=== PATIENT | male | born 1995 | race Caucasian/White ===

== ENCOUNTER 2018-03-06 14:45 | Emergency (ER) | payer OTHER ==
--- NOTE | 2018-03-06 15:42 | EDM.PDOC ---
ED HPI GENERAL MEDICAL PROBLEM - General Chief Complaint: Upper Extremity Injury/Pain Stated Complaint: LEFT PINKY FINGER Time Seen by Provider: 03/06/18 15:20 Source of Information: Reports: Patient History Limitations: Reports: No Limitations - History of Present Illness INITIAL COMMENTS - FREE TEXT/NARRATIVE: HISTORY AND PHYSICAL: History of present illness: [Comes to the ER complaining of left fifth finger laceration pain and bleeding. Was holding a shelf in place while his friend was hammering. The hammer moved, slamming into patients fifth left finger. He complains of pain, deformity, bleeding. Last tetanus was approximately 7 years ago.] Review of systems: As per history of present illness and below otherwise all systems reviewed and negative. Past medical history: As per history of present illness and as reviewed below otherwise noncontributory. Surgical history: As per history of present illness and as reviewed below otherwise noncontributory. Social history: No reported history of drug or alcohol abuse. Family history: As per history of present illness and as reviewed below otherwise noncontributory. Physical exam: HEENT: Atraumatic, normocephalic. Extremities: L pinky finger shows stellate patterned, avulsion injury to tip of finger. Tissue protruding from wound of tip of finger laceration. Second laceration is linear across the middle of the fingernail. Neurovascular unremarkable. Neuro: Awake, alert, oriented. Motor and sensory unremarkable throughout. Exam nonfocal. Diagnostics: [Left Fifth finger x-ray] Therapeutics: [Adacel IM] Impression: [L 5th finger laceration] Plan: [Rx written for Augmentin 875 mg #20 sig one by mouth twice a day total taken 0 refills referral given to local plastic surgery/hand specialist. See procedure note for wound closure details. ] Definitive disposition and diagnosis as appropriate pending reevaluation and review of above. left fifth digit Pain Score (Numeric/FACES): 8 - Related Data Allergies Allergy/AdvReac Type Severity Reaction Status Date / Time No Known Allergies Allergy Verified 03/06/18 15:15 Home Meds: Home Meds . [No Known Home Meds] 03/06/18 [History] Past Medical History - Past Health History Medical/Surgical History: Denies Medical/Surgical History - Infectious Disease History Infectious Disease History: Reports: None Social & Family History - Family History Family Medical History: Noncontributory - Tobacco Use Smoking Status *Q: Former Smoker Used Tobacco, but Quit: Yes Month/Year Tobacco Last Used: 2018 - Caffeine Use Caffeine Use: Reports: None - Recreational Drug Use Recreational Drug Use: No Review of Systems - Review of Systems Review Of Systems: ROS reveals no pertinent complaints other than HPI. ED EXAM, GENERAL - Physical Exam Exam: See Below ED TRAUMA EXTREMITY PROCEDURES - Laceration/Wound Repair Left Distal Finger Lac/Wound Length In cm: 1.5 Appearance: Subcutaneous, Stellate, Moderately Contaminated Distal NVT: Neuro & Vascular Intact Anesthetic Type: Digital Local Anesthesia - Lidocaine (Xylocaine): 1% Plain Local Anesthesia - Bupivicaine (Marcaine): 0.5% Plain Local Anesthetic Volume: 5cc Skin Prep: Chlorhexidine (Hibiciens), Isopropyl Alcohol (Alcohol), Saline, Sterile Drape Exploration/Debridement/Repair: Wound Explored, In a Bloodless Field, Moderate Debridement Closed With: Sutures Suture Size: 4-0 # of Sutures: 4 Suture Type: Nylon Sterile Dressing Applied: Nurse Tetanus Status Addressed: Yes Complications: No Progress/Comments: 3 sutures are placed in sterile fashion to the tip of the left fifth finger. One suture is through the fingernail attaching the proximal end to the distal aspect of the fingernail. Course - Vital Signs Last Recorded V/S: Last Vital Signs Temp 98.8 F 03/06/18 15:15 Pulse 76 03/06/18 15:15 Resp 18 03/06/18 15:15 BP 125/71 03/06/18 15:15 Pulse Ox 98 03/06/18 15:15 - Orders/Labs/Meds Orders: Active Orders 24 hr Category Date Time Status Vaccines to be Administered [RC] PER UNIT ROUTINE Care 03/06/18 17:24 Active Meds: Medications Discontinued Medications Generic Name Dose Route Start Last Admin Trade Name Freq PRN Reason Stop Dose Admin Bupivacaine HCl 10 ml 03/06/18 16:23 03/06/18 16:36 Sensorcaine-Mpf 0.5% INJECT 03/06/18 16:24 10 ml ONETIME ONE Administration Diphtheria/Tetanus/Acell Pertussis 0.5 ml 03/06/18 17:24 03/06/18 17:39 Adacel IM 03/06/18 17:25 0.5 ml .ONCE ONE Administration Lidocaine 5 ml 03/06/18 16:23 03/06/18 16:36 Xylocaine-Mpf 2% INJECT 03/06/18 16:24 Not Given ONETIME ONE Lidocaine HCl 50 ml 03/06/18 16:30 03/06/18 16:36 Xylocaine 1% INJECT 50 ml ASDIRECTED ZACHARY Administration Neomycin/Polymyxin/Bacitracin 1 gm 03/06/18 17:25 Triple Antibiotic Oint TOP 03/06/18 17:26 ONETIME ONE Departure - Departure Time of Disposition: 17:30 Disposition: Home, Self-Care 01 Condition: Good Clinical Impression: Laceration of finger of left hand, Open fracture of tuft of distal phalanx of finger - Discharge Information Instructions: Metacarpal Fracture, [id number] Referrals: PCP,None [Primary Care Provider] - Forms: ED Department Discharge Additional Instructions: The following information is given to patients seen in the emergency department who are being discharged to home. This information is to outline your options for follow-up care. We provide all patients seen in our emergency department with a follow-up referral. The need for follow-up, as well as the timing and circumstances, are variable depending upon the specifics of your emergency department visit. If you don't have a primary care physician on staff, we will provide you with a referral. We always advise you to contact your personal physician following an emergency department visit to inform them of the circumstance of the visit and for follow-up with them and/or the need for any referrals to a consulting specialist. The emergency department will also refer you to a specialist when appropriate. This referral assures that you have the opportunity for follow-up care with a specialist. All of these measure are taken in an effort to provide you with optimal care, which includes your follow-up. Under all circumstances we always encourage you to contact your private physician who remains a resource for coordinating your care. When calling for follow-up care, please make the office aware that this follow-up is from your recent emergency room visit. If for any reason you are refused follow-up, please contact the [facility] emergency department at and asked to speak to the emergency department charge nurse. [facility] Specialty care- [facility] [address] [place] [address], [address] [place] [address] Follow-up at the clinic listed above. If you don't hear from them in the next several days call there to get scheduled for an appointment next week. Triple Antibiotic and dressings as discussed. New line return to ER as needed as discussed. - My Orders Last 24 Hours: My Active Orders 03/06/18 17:24 Vaccines to be Administered [RC] PER UNIT ROUTINE - Assessment/Plan Last 24 Hours: My Active Orders 03/06/18 17:24 Vaccines to be Administered [RC] PER UNIT ROUTINE
--- NOTE | 2018-03-06 16:10 | CR ---
Left fifth finger Clinical history: Crush injury Comparison: None Findings: There is soft tissue injury to the distal phalanx with a subtle nondisplaced fracture of th e distal phalangeal tuft. Impression: Nondisplaced distal phalangeal tuft fracture
[2018-03-06] MEDS ORDERED: Lidocaine 2% 5 ML SDV INJECT ONE (16:23)
[2018-03-06] MEDS ORDERED: Bupivacaine 0.5% 10 ML SDV INJECT ONE (16:23)
[2018-03-06] MEDS ORDERED: Lidocaine 1% 50 ML MDV INJECT SCH (16:30)
[2018-03-06] MEDS ORDERED: Diphtheria,Pertussis(Acell),Tetanus Vaccine 0.5 ML Syringe IM ONE (17:24)
[2018-03-06] MEDS ORDERED: Bacitracin/Neomycin/Polymyxin B Oint 28.4 GM Tube TOP ONE (17:25)
== END 2018-03-06 17:40 | disposition home or self-care (01) ==
LOC: MW.ED 14:45
DX: S62.637B Displaced fracture of distal phalanx of left little finger, initial encounter for open fracture (principal); W22.8XXA Striking against or struck by other objects, initial encounter; Z87.891 Personal history of nicotine dependence; Z23 Encounter for immunization
CPT/HCPCS: 73140-26-F4; 73140-F4; 90471; 90715; 99283-25